=== PATIENT | male | born 1965 | race Caucasian/White ===

== ENCOUNTER 2022-10-30 09:16 | Inpatient (IN) | payer OTHER ==
[~2022-10-30] VITALS: Ht 182.9 cm; Wt 93.0 kg
[2022-10-30] MEDS ORDERED: Morphine 4mg INJECTION 4 MG/ML INJ IV STA (09:32)
[2022-10-30] MEDS ORDERED: KETOROLAC TROMETHAMINE 30 MG/ML VIAL IV STA (09:32)
[2022-10-30] MEDS ORDERED: ONDANSETRON HCL INJ 2MG/ML 2ML 2 MG/ML VIAL IV STA (09:32)
[2022-10-30] MEDS ORDERED: SODIUM CHLORIDE 0.9% 1000ML 1,000 ML IV STA (09:32)
[2022-10-30 10:15] LABS: BASOPHILS # (AUTO) 0.1 (0.0-0.1); EOSINOPHILS # (AUTO) 0.2 (0.0-0.4); EOSINOPHILS % 4.1 % (0.0-6.0); HEMATOCRIT 42.8 % (38.2-49.6); HEMOGLOBIN 14.5 g/dL (14.0-18.0); LYMPHOCYTES # (AUTO) 1.2 (1.0-3.2); MEAN CORPUSCULAR HEMOGLOBIN 31.7 pg (28-32); MEAN CORPUSCULAR HGB CONC 33.9 g/dL (31-35); MEAN CORPUSCULAR VOLUME 93.7 fL (81-99); MONOCYTES # (AUTO) 0.4 (0.2-0.8); MONOCYTES % 7.6 % (4.4-11.3); NEUTROPHILS # (AUTO) 3.2 (2.1-6.9); NEUTROPHILS % 62.9 % (38.7-80.0); PLATELET COUNT 186 x10e3/uL (140-360); RED BLOOD COUNT 4.57 x10e6/uL (4.3-5.7); RED CELL DISTRIBUTION WIDTH 13.7 % (11.7-14.4)
[2022-10-30 10:22] LABS: CLARITY,URINE CLEAR (CLEAR); COLOR,URINE YELLOW (YELLOW); LEUKOCYTE ESTERASE ,URINE NEGATIVE (NEGATIVE)
[2022-10-30 10:23] LABS: KETONES,URINE NEGATIVE (NEGATIVE); NITRITE,URINE NEGATIVE (NEGATIVE); PROTEIN,URINE DIPSTICK NEGATIVE (NEGATIVE); URINE UROBILINOGEN 0.2 mg/dL (0.2 - 1)
[2022-10-30 10:25] LABS: INR 1.02; PROTHROMBIN TIME 13.6 seconds (11.9-14.5)
[2022-10-30 10:26] LABS: PARTIAL THROMBOPLASTIN TIME 27.1 seconds (23.8-35.5)
[2022-10-30 10:29] LABS: MUCUS,URINE MODERATE (RARE)
[2022-10-30 10:30] LABS: BACTERIA,URINE FEW /HPF; EPITHELIAL CELLS,URINE RARE /LPF; RBC,URINE 0-5 /HPF (0-5)
[2022-10-30 10:33] LABS: ALBUMIN 4.3 g/dL (3.5-5.0); CALCIUM 9.1 mg/dL (8.4-10.2); CREATININE, SERUM 1.13 mg/dL (0.72-1.25)
[2022-10-30 10:39] LABS: CREATINE KINASE MB 15.7 ng/mL (0-5.0)
[2022-10-30] MEDS ORDERED: IOPAMIDOL 370 MG/ML 100 ML INFUS..BTL INJ ONE (12:07)
[2022-10-30] MEDS ORDERED: NITROGLYCERIN 0.4 MG SUBL SL PRN (12:30)
[2022-10-30] MEDS ORDERED: HEPARIN SOD (PORCINE) 5,000 UNIT/ML VIAL IV ONE (12:30)
[2022-10-30] MEDS ORDERED: ASPIRIN 81 MG CHEW TAB PO ONE (12:45)
[2022-10-30] MEDS: FAMOTIDINE 20 MG/2 ML VIAL IV SCH ×2 (12:52→23:59)
[2022-10-30] MEDS ORDERED: SYNTHROID125 MCG PO (13:37)
[2022-10-30 14:00] VITALS: BP 123/85
[2022-10-30] MEDS: HEPARIN 25,000 UNIT 1,000 UNIT in DEXTROSE 5% 250ML 250 ML IV SCH (15:35)
[2022-10-30] MEDS ORDERED: SODIUM CHLORIDE 0.9% 250ML 250 ML ONE (15:43)
[2022-10-30] MEDS: Morphine 4mg INJECTION 4 MG/ML INJ IV PRN ×2 (15:50→21:47)
[2022-10-30] MEDS: ONDANSETRON HCL INJ 2MG/ML 2ML 2 MG/ML VIAL IV PRN ×2 (15:50→21:47)
[2022-10-30 16:04] VITALS: BP 123/85
[2022-10-30 16:38] VITALS: BP 123/85
[2022-10-30 18:26] LABS: CREATINE KINASE MB 29.3 ng/mL (0-5.0)
[2022-10-30 20:00] VITALS: BP 111/84
[2022-10-30] MEDS ORDERED: ACETAMINOPHEN 325 MG TAB PO PRN (20:45)
[2022-10-31] VITALS (18 sets, daily range): BP systolic 85–129; BP diastolic 55–86
[2022-10-31 06:15] LABS: BASOPHILS # (AUTO) 0.1 (0.0-0.1); BASOPHILS % 1.2 % (0.0-1.0); EOSINOPHILS # (AUTO) 0.3 (0.0-0.4); EOSINOPHILS % 5.3 % (0.0-6.0); HEMATOCRIT 40.2 % (38.2-49.6); HEMOGLOBIN 13.1 g/dL (14.0-18.0); LYMPHOCYTES # (AUTO) 1.4 (1.0-3.2); LYMPHOCYTES % 27.6 % (18.0-39.1); MEAN CORPUSCULAR HEMOGLOBIN 30.7 pg (28-32); MEAN CORPUSCULAR HGB CONC 32.6 g/dL (31-35); MEAN CORPUSCULAR VOLUME 94.1 fL (81-99); MONOCYTES # (AUTO) 0.4 (0.2-0.8); MONOCYTES % 7.9 % (4.4-11.3); NEUTROPHILS # (AUTO) 2.9 (2.1-6.9); NEUTROPHILS % 57.8 % (38.7-80.0); PLATELET COUNT 164 x10e3/uL (140-360); RED BLOOD COUNT 4.27 x10e6/uL (4.3-5.7); RED CELL DISTRIBUTION WIDTH 13.5 % (11.7-14.4)
[2022-10-31 06:36] LABS: ALBUMIN 3.6 g/dL (3.5-5.0); ANION GAP 11.7 mmol/L (8-16); CALCIUM 8.4 mg/dL (8.4-10.2); CHOL/HDL RATIO 5.4 (3.9-4.7); CREATININE, SERUM 1.02 mg/dL (0.72-1.25); POTASSIUM 3.7 mmol/L (3.5-5.1)
[2022-10-31] MEDS: Morphine 4mg INJECTION 4 MG/ML INJ IV PRN ×4 (07:16→23:45)
[2022-10-31] MEDS ORDERED: ASPIRIN 325 MG TAB EC PO SCH (09:00)
[2022-10-31] MEDS ORDERED: VERAPAMIL HCL 2.5 MG/ML 2 ML VIAL ONE (09:36)
[2022-10-31] MEDS ORDERED: HEPARIN SOD (PORCINE) 1000 UNIT/ML 30ML ONE (09:36)
[2022-10-31] MEDS ORDERED: MIDAZOLAM HCL 2 MG/2 ML VIAL ONE (09:37)
[2022-10-31] MEDS ORDERED: HEPARIN SOD/SOD CHLORIDE 1,000 ML ONE (09:37)
[2022-10-31] MEDS ORDERED: FENTANYL CITRATE/PF 100MCG/2 ML INJ ONE (09:37)
[2022-10-31] MEDS ORDERED: IOPAMIDOL 370 MG/ML 100 ML INFUS..BTL INJ ONE (09:38)
[2022-10-31] MEDS ORDERED: NITROGLYCERIN/D5W 200 MCG/ML 250 ML ONE (09:39)
[2022-10-31] MEDS ORDERED: LIDOCAINE HCL 1% LOCAL INJ 20 ML VIAL ONE ×2 (09:39→15:04)
[2022-10-31] MEDS ORDERED: SODIUM CHLORIDE 0.9% 1000ML 1,000 ML ONE (09:39)
[2022-10-31] MEDS: FAMOTIDINE 20 MG/2 ML VIAL IV SCH ×2 (12:32→23:45)
[2022-10-31] MEDS: HEPARIN 25,000 UNIT 1,000 UNIT in DEXTROSE 5% 250ML 250 ML IV SCH (12:32)
[2022-10-31] MEDS ORDERED: EPTIFIBATIDE 10 ML ONE (15:57)
[2022-10-31] MEDS ORDERED: PRASUGREL 10 MG TAB ONE (16:48)
[2022-10-31 21:36] LABS: CREATINE KINASE MB 7.9 ng/mL (0-5.0)
[2022-11-01] VITALS: BP 115/79
[2022-11-01] MEDS: Morphine 4mg INJECTION 4 MG/ML INJ IV PRN ×2 (04:39→08:12)
[2022-11-01 05:19] VITALS: BP 111/68
[2022-11-01 06:05] LABS: BASOPHILS # (AUTO) 0.1 (0.0-0.1); BASOPHILS % 0.9 % (0.0-1.0); EOSINOPHILS # (AUTO) 0.3 (0.0-0.4); EOSINOPHILS % 5.6 % (0.0-6.0); HEMATOCRIT 39.7 % (38.2-49.6); HEMOGLOBIN 13.1 g/dL (14.0-18.0); LYMPHOCYTES # (AUTO) 1.1 (1.0-3.2); LYMPHOCYTES % 19.1 % (18.0-39.1); MEAN CORPUSCULAR HEMOGLOBIN 30.5 pg (28-32); MEAN CORPUSCULAR VOLUME 92.3 fL (81-99); MONOCYTES # (AUTO) 0.5 (0.2-0.8); MONOCYTES % 9.4 % (4.4-11.3); NEUTROPHILS # (AUTO) 3.6 (2.1-6.9); NEUTROPHILS % 64.6 % (38.7-80.0); PLATELET COUNT 159 x10e3/uL (140-360); RED CELL DISTRIBUTION WIDTH 13.1 % (11.7-14.4)
[2022-11-01 06:39] LABS: ANION GAP 10.7 mmol/L (8-16); CALCIUM 8.5 mg/dL (8.4-10.2); CREATININE, SERUM 0.86 mg/dL (0.72-1.25); POTASSIUM 3.7 mmol/L (3.5-5.1)
[2022-11-01 06:41] LABS: CHOL/HDL RATIO 5.2 (3.9-4.7)
[2022-11-01 07:05] LABS: THYROID STIMULATING HORMONE 1.11 uIU/mL (0.350-4.940)
[2022-11-01 07:51] VITALS: BP 133/81
[2022-11-01 08:00] VITALS: BP 133/81
[2022-11-01] MEDS ORDERED: METOPROLOL SUCCINATE 50 MG TAB XL PO SCH (09:00)
[2022-11-01] MEDS ORDERED: LISINOPRIL 10 MG TAB PO ONE (09:00)
[2022-11-01] MEDS ORDERED: ASPIRIN 81 MG ENTERIC COATED PO SCH (09:00)
[2022-11-01] MEDS ORDERED: PRASUGREL 10 MG TAB PO SCH (09:00)
[2022-11-01] MEDS ORDERED: ATORVASTATIN 40 MG TAB PO SCH (09:00)
[2022-11-01] MEDS ORDERED: LISINOPRIL 2.5 MG TAB PO ONE (10:00)
[2022-11-01 10:57] VITALS: BP 120/72
[2022-11-01] MEDS: FAMOTIDINE 20 MG/2 ML VIAL IV SCH (10:59)
[2022-11-01] MEDS ORDERED: ACETAMINOPHEN325 M1 PO (12:01)
[2022-11-01] MEDS ORDERED: EFFIENT10 MG PO (12:01)
[2022-11-01] MEDS ORDERED: NITROSTAT0.4 MG SL (12:01)
[2022-11-01] MEDS ORDERED: ASPIRIN EC81 MG PO (12:01)
[2022-11-01] MEDS ORDERED: TOPROL XL50 MG PO (12:01)
[2022-11-01] MEDS ORDERED: ATORVASTATIN CA40 MG PO (12:02)
== END 2022-11-01 13:37 | disposition home or self-care (01) | DRG 247 ==
LOC: ER 09:23 → ERHOLD 12:23 → MED/SURG2 13:20
PROVIDERS: ADMIT Internal Medicine; ATTEND Internal Medicine
PROC: 027034Z Dilation of Coronary Artery, One Artery with Drug-eluting Intraluminal Device, Percutaneous Approach (ICD-10-PCS; principal; 2022-10-31)
PROC: 4A023N7 Measurement of Cardiac Sampling and Pressure, Left Heart, Percutaneous Approach (ICD-10-PCS; 2022-10-31)
PROC: B2111ZZ Fluoroscopy of Multiple Coronary Arteries using Low Osmolar Contrast (ICD-10-PCS; 2022-10-31)
PROC: B240ZZ3 Ultrasonography of Single Coronary Artery, Intravascular (ICD-10-PCS; 2022-10-31)
DX: I21.4 Non-ST elevation (NSTEMI) myocardial infarction (principal); S22.31XA Fracture of one rib, right side, initial encounter for closed fracture; E03.9 Hypothyroidism, unspecified; W13.2XXA Fall from, out of or through roof, initial encounter; Y93.H3 Activity, building and construction; Y92.008 Other place in unspecified non-institutional (private) residence as the place of occurrence of the external cause; E78.5 Hyperlipidemia, unspecified; Z82.49 Family history of ischemic heart disease and other diseases of the circulatory system; Z20.822 Contact with and (suspected) exposure to COVID-19; E66.09 Other obesity due to excess calories; Z68.27 Body mass index [BMI] 27.0-27.9, adult; I25.10 Atherosclerotic heart disease of native coronary artery without angina pectoris
CPT/HCPCS: 0223U; 36415; 70450; 71260; 74177; 80048; 80053; 80061; 81001; 82550; 82553; 83036; 84443; 84484; 85025; 85610; 85730; 92920; 92928; 92978; 93005; 93306; 93458; 94799; 96365; 96366; 99152; 99153; 99284; C1725; C1753; C1874; C1887; J1327; J1644; J1885; J2001; J2250; J2270; J2405; J3010; J7030; J7050; Q9967